=== PATIENT | female | born 1960 | race African-American/Black ===

== ENCOUNTER 2024-02-24 09:16 | Emergency (ER) | payer MEDICAID ==
[~2024-02-24] VITALS: Ht 170.2 cm; Wt 82.0 kg
[2024-02-24 09:20] VITALS: TEMP 99.1; O2SAT 96
[2024-02-24] MEDS ORDERED: ACETAMINOPHEN 325MG TABLET PO ONE (09:45)
[2024-02-24 11:00] VITALS: BP 131/76; PULSE 88; RESP 14
== END 2024-02-24 11:32 | disposition home or self-care (01) ==
LOC: ER 09:16
DX: S09.90XA Unspecified injury of head, initial encounter (principal); I10 Essential (primary) hypertension; W18.30XA Fall on same level, unspecified, initial encounter; Y93.01 Activity, walking, marching and hiking; Y92.89 Other specified places as the place of occurrence of the external cause; Y99.8 Other external cause status
CPT/HCPCS: 99284